=== PATIENT | male | born 2000 | race Caucasian/White ===

== ENCOUNTER 2025-05-08 22:10 | Emergency (ER) | payer OTHER | END 2025-05-08 22:58 | disposition home or self-care (01) | LOC: JP.ED 22:10 | DX: S61.411A Laceration without foreign body of right hand, initial encounter (principal); F17.200 Nicotine dependence, unspecified, uncomplicated; W25.XXXA Contact with sharp glass, initial encounter | CPT/HCPCS: 99282 ==